=== PATIENT | female | born 1930 | race Caucasian/White ===

== ENCOUNTER → 2017-02-15 | Outpatient (CLI) | payer MEDICARE, OTHER ==
[~2017-02-15] MED LIST: ALBUTEROL2.5 MG/NEB IN; AMIODARONE 200200 MG PO; AMLODIPINE10 MG PO; ASPIRIN 81MG TA81 MG PO; ATENOLOL25 MG PO; ATENOLOL50 M1 PO; CLARITIN 10MG T10 MG PO; CLOPIDOGREL75 MG PO; COLACE GENERIC100 MG PO; FUROSEMIDE 40MG40 M1 PO; FUROSEMIDE40 MG PO; GABAPENTIN100 M1 PO; GABAPENTIN300 M1 PO; GLIMEPIRIDE 4MG4 MG PO; GLYBURIDE 5MG TA5 MG PO; HYDROCODONE BIT1 T45 PO; KEFLEX 500MG.500 MG PO; LEVOTHYROXINE0.05 M2 PO; LISINOPRIL 5MG T5 MG PO; LISINOPRIL2.5 M1 PO; MECLIZINE 25MG25 MG PO; MEDROL 4MG. DOSE4 MG PO; METHIMAZOLE5 MG PO; MIRALAX17 GM/PACK PO; NORCO 325 MG-51 TAB PO; NORVASC 5MG. TAB5 MG PO; OMEGA-31000 MG PO; OMNICEF 300 MG300 MG PO; PERCOCET 325 MG1 TA3 PO; PERCOCET 5/3251 EACH PO; POTASSIUM CHLO20 ME2 PO; PREDNISONE 20MG20 MG PO; PROAIR HFA0.09 MG/AC IH; PROTONIX 40MG T40 MG PO; ROBAXIN-750750 MG PO; ROPINIROLE HYDRO1 M1 PO; SIMVASTATIN20 MG PO; SPIRIVA HA1 PUFF/INH IH; SYNTHROID0.088 M3 PO; TESSALON PERLE100 MG PO; ULTRAM50 MG PO; VITAMIN B122500 MC1 PO; VITAMIN D PO; ZAROXOLYN2.5 MG PO
--- NOTE | 2017-02-15 14:48 | RADIOLOGY REPORT PS360 ---
DIG MAMM-SCREEN ZAC W/CAD CAD Screening ORDERING PHYSICIAN : Srinivasan Valdez MD PATIENT AGE: 86 years GENDER: Female COMPARISON: Previous mammograms: Previous mammogram January 2015 & INDICATION: Routine. routine screening mammogram no hormones Maternal aunt with breast cancer TECHNIQUE: Standard CC and MLO images were obtained. R2 CAD reviewed. FINDINGS: .. Moderate density breast for age scattered moderate inhomogeneous Fibroglandular elements bilaterally. RIGHT BREAST: No new findings. Small calcifications right breast have remained recently stable and can be followed. Benign punctate appearance overall. The mild asymmetry towards axillary tail of right left breast again noted but unchanged since prior studies. LEFT BREAST: No new findings. Minimal nodularity stable towards axillary left breast. Can be followed Stable overall architecture.Pacemaker axillary left breast again noted Bilateral follow-up in one year the adequate IMPRESSION: Stable bilateral mammogram. Moderate density breast. Stable overall benign-appearing calcifications right breast. BI-RADS CATEGORY: 2_Benign RECOMMENDED FOLLOWUP: 12M 12 MONTH FOLLOW-UP (A letter has been sent to the patient regarding results of the study.)
== END ==
LOC: RAD 09:13
DX: Z12.31 Encounter for screening mammogram for malignant neoplasm of breast (principal)
CPT/HCPCS: G0202

== ENCOUNTER → 2017-07-21 | Outpatient (CLI) | payer MEDICARE, OTHER ==
[2017-07-21 10:14] LABS: BILIRUBIN, INDIRECT 0.39 mg/dL (0-0.9)
== END ==
LOC: LAB 09:14
PROVIDERS: Internal Medicine Cardiovascular Disease
DX: I10 Essential (primary) hypertension (principal); E11.9 Type 2 diabetes mellitus without complications; J44.9 Chronic obstructive pulmonary disease, unspecified; I25.10 Atherosclerotic heart disease of native coronary artery without angina pectoris; I65.23 Occlusion and stenosis of bilateral carotid arteries; Z95.0 Presence of cardiac pacemaker